=== PATIENT | female | born 1975 | race Caucasian/White ===

== ENCOUNTER 2017-03-04 13:53 | Emergency (ER) | payer MEDICAID ==
[2017-03-04] MEDS ORDERED: HYDROmorphone 2 MG/ML SDV IM ONE (14:51)
--- NOTE | 2017-03-07 12:03 | ER ---
DATE SEEN: 03/04/2017 TIME SEEN: 1410 hours. CHIEF COMPLAINT: Low back pain, bulging disks, ankylosing spondylitis. She has been followed by anatomy teacher, she now has moved, last time she saw her doctor is two months ago. She has been in this community for a month. PAST MEDICAL HISTORY: Significant for: 1. PTSD. 2. Anxiety. 3. Depression. 4. Chronic pain. 5. Pancreatitis. 6. Seizures. 7. Hypoglycemia. 8. Hyponatremia. 9. Fibromyalgia. 10.Migraines. CURRENT MEDICATIONS: 1. Clonazepam 0.5 mg q.i.d. 2. Cymbalta 120 mg daily. 3. Zofran 4 mg q.4 hours p.r.n. 4. Gabapentin 900 mg t.i.d. 5. Creon 36,000 units two capsules t.i.d. 6. Hydroxyzine 25 mg b.i.d. 7. Levetiracetam 1250 mg b.i.d. 8. Enbrel injections weekly. ALLERGIES: None. PSYCHIATRIC HISTORY: 1. Depression. 2. PTSD. REVIEW OF SYSTEMS: Negative, except as noted above. Denies headache, neck stiffness, shortness of breath, chest pain, irregular heartbeat, abdominal discomfort, nausea, vomiting, and diarrhea. No history of GERD. She has pancreatitis symptoms. She has generalized myalgia. She is not using duloxetine, one of the drugs of choice for fibromyalgia. PHYSICAL EXAMINATION: VITAL SIGNS: Blood pressure 132/89, heart rate 81, and oxygen saturation 100%. GENERAL: Attended by her significant other. Alert woman, in mild distress. She is mildly overweight. HEENT: PERRLA intact. Pharynx without abnormality. LUNGS: Clear. HEART: Without murmur. ABDOMEN: Soft. No guarding. No abdominal discomfort. EXTREMITIES: Straight leg raise is negative bilaterally to 90 degrees. NEUROLOGIC: Deep tendon reflexes normal in upper and lower extremities. Sensation normal in upper and lower extremities. She has mild dysesthesia, which she discussed, with tingling on the right side of her thigh. No decreased range of motion in the hips. No joint arthralgia and no swelling in her fingers. No first or second MP joint discomfort on the hands. DIAGNOSES: 1. Fibromyalgia. 2. Ankylosing spondylitis. 3. Depression. 4. Posttraumatic stress disorder. 5. Anxiety. 6. History of pancreatitis. 7. History of seizures. PLAN: The patient was advised that the ER is not the source of pain medicine for her. She will get eight tablets to get through the weekend and one shot of Dilaudid. Otherwise, follow up with doctor and make arrangements for chronic pain therapy. Chronic pain therapy is not something that is managed in the emergency room. /[id number] RICHARD/NATALIE
== END 2017-03-04 15:12 | disposition home or self-care (01) ==
LOC: FB.ED 13:53
DX: M79.7 Fibromyalgia (principal); M45.9 Ankylosing spondylitis of unspecified sites in spine; F41.9 Anxiety disorder, unspecified; F32.9 Major depressive disorder, single episode, unspecified; F43.10 Post-traumatic stress disorder, unspecified; Z79.899 Other long term (current) drug therapy
CPT/HCPCS: 96372; 99282; J1170

== ENCOUNTER 2017-03-14 15:42 | Emergency (ER) | payer MEDICAID ==
--- NOTE | 2017-03-14 16:34 | EDM.PDOC ---
ED HPI GENERAL MEDICAL PROBLEM - General Chief Complaint: Syncope Stated Complaint: Loss of consciousness Time Seen by Provider: 03/14/17 16:00 Source of Information: Reports: Patient History Limitations: Reports: No Limitations - History of Present Illness INITIAL COMMENTS - FREE TEXT/NARRATIVE: Honey comes to [facility] ED following an episode of LOC at about 1:30 pm that lasted approximately 10 minutes before she became aware of her surroundings, on the floor laying on her right side, reportedly with some minor pain of the right scalp. Her last episode similar to this one was about 4 mos ago. She reports a PMH of hypoglycemia, documentation available from her past PCP in the [place], [place]. She did have breakfast at 9 am this am, but no lunch. She did not report an aura or prodrome prior to the episode,and this was unwitnessed. She is requesting a note for work she missed today. Of interest is a PMH of seizures , PTSD, Depression, and fibromyalgia. She has not established with a provider since relocating to this area. She reports med compliance. Generalized Pain Score (Numeric/FACES): 5 Chest Pain Score (Numeric/FACES): 5 - Related Data Allergies Allergy/AdvReac Type Severity Reaction Status Date / Time No Known Allergies Allergy Verified 03/04/17 14:04 Home Meds: Home Meds ClonazePAM [KlonoPIN] 0.5 mg PO QID PRN 03/04/17 [History] DULoxetine [Cymbalta] 120 mg PO DAILY 03/04/17 [History] Etanercept [Enbrel] 25 mg SQ WEEKLY 03/04/17 [History] Gabapentin [Neurontin] 900 mg PO TID 03/04/17 [History] Hydrocodone/Acetaminophen [Hydrocodon-Acetaminophen 5-325] 1 each PO Q6HR #8 tablet 03/04/17 [Rx] Lipase/Protease/Amylase [Jose Maria Ron 36,000 Units Capsule] 2 each PO .TIDWITHMEALS 03/04/17 [History] Ondansetron [Zofran] 4 mg PO Q4H 03/04/17 [History] hydrOXYzine HCl [Atarax] 25 mg PO QID 03/04/17 [History] levETIRAcetam [Keppra] 1,250 mg PO BID 03/04/17 [History] Past Medical History Gastrointestinal History: Reports: Pancreatitis, Other (See Below) Other Gastrointestinal History: hypoglycemia, hyponatremia Musculoskeletal History: Reports: Back Pain, Chronic, Fibromyalgia, Other (See Below) Other Musculoskeletal History: Ankylosing Spondylitis Neurological History: Reports: Migraines, Seizure Psychiatric History: Reports: Anxiety, Depression, PTSD Endocrine/Metabolic History: Reports: Obesity/BMI 30+ Social & Family History - Family History Family Medical History: Noncontributory - Tobacco Use Smoking Status *Q: Never Smoker Second Hand Smoke Exposure: No - Caffeine Use Caffeine Use: Reports: Soda - Recreational Drug Use Recreational Drug Use: No ED ROS GENERAL - Review of Systems Review Of Systems: ROS reveals no pertinent complaints other than HPI. - Physical Exam Exam: See Below Exam Limited By: No Limitations General Appearance: Alert, WD/WN, No Apparent Distress Eye Exam: Bilateral Eye: Normal Inspection, PERRL Ears: Normal External Exam Nose: Normal Inspection Throat/Mouth: Normal Inspection, Normal Lips, Normal Oropharynx, Normal Voice Head Exam: Atraumatic, Normocephalic Neck: Normal Inspection, Supple, Non-Tender, Full Range of Motion Respiratory/Chest: No Respiratory Distress, Lungs Clear, Normal Breath Sounds, No Accessory Muscle Use, Chest Non-Tender Cardiovascular: Regular Rate, Rhythm, No Murmur GI/Abdominal: Normal Bowel Sounds, Soft, Non-Tender, No Organomegaly, No Distention, No Mass (Female) Exam: Deferred Rectal (Female) Exam: Deferred Neuro Exam (Abbreviated): Alert, Oriented, CN II-XII Intact, Normal Cognition, Normal Gait, Normal Reflexes, No Motor/Sensory Deficits Back Exam: Normal Inspection Extremities: Normal Inspection, Normal Range of Motion Psychiatric: Normal Affect, Normal Mood Skin Exam: Warm, Dry, Intact, Normal Color Course - Vital Signs Text/Narrative:: Honey remained stable and unchanged at the [facility] ED. No meds were given. Last Recorded V/S: Last Vital Signs Temp Pulse 79 03/14/17 15:45 Resp 22 H 03/14/17 15:45 BP 145/86 H 03/14/17 15:45 Pulse Ox 99 03/14/17 15:45 Departure - Departure Time of Disposition: 16:37 Disposition: Home, Self-Care 01 Condition: Good Clinical Impression: Atypical syncope - Discharge Information Referrals: PCP,None [Primary Care Provider] - (follow up in a.m 9:30 with Samantha Squires NP [facility] in [place]) Forms: ED Department Discharge Care Plan Goals: NO DrIving follow up with JR Duron. - Problem List & Annotations (1) Atypical syncope SNOMED Code(s): 259302236 Code(s): R55 - SYNCOPE AND COLLAPSE Status: Acute Current Visit: Yes Annotation/Comment:: Unwitnessed episode, possible atypical syncope. Honey is not allowed to drive, and must establish with a PCP. An appt was made at the [facility] for a PCP. She may continue same meds at this time, and recover her glucometer for home monitoring if needed. - Problem List Review Problem List Initiated/Reviewed/Updated: Yes - Assessment/Plan Plan: Follow up with PCP.
== END 2017-03-14 16:25 | disposition home or self-care (01) ==
LOC: FB.ED 15:42
DX: R55 Syncope and collapse (principal); E66.9 Obesity, unspecified; Z79.899 Other long term (current) drug therapy
CPT/HCPCS: 99283